=== PATIENT | male | born 1990 | race Caucasian/White ===

== ENCOUNTER 2020-11-20 14:08 | Emergency (ER) | payer SELFPAY ==
--- NOTE | ~2020-11-20 | XR_ITS ---
EXAMINATION: XR lumbar spine 2-3V DATE: 11/20/2020 15:08 INDICATION: Low back and beginning 4 days prior TECHNIQUE: Anteroposterior and lateral views of the lumbar spine, and cone-down lateral view of the l umbosacral junction were obtained. COMPARISON: None. FINDINGS: Alignment is normal. Vertebral body and disc no significant facet osteoarthritis. Sacrum and bilatera l sacroiliac joints are normal. Phlebolith in the left hemipelvis. Heights are normal. IMPRESSION: 1. Negative lumbar spine radiographs. Reviewed, dictated and finalized at location A.
[2020-11-20 14:20] VITALS: BP 139/73; PULSE 75; RESP 18; TEMP 37.4; O2SAT 99
--- NOTE | 2020-11-20 14:36 | ED.BACK ---
HPI - Back Pain/Injury General Chief Complaint: Back Pain/Injury Stated Complaint: Possible injury to Back Time Seen by Provider: 11/20/20 14:36 Source: patient, RN notes reviewed and old records reviewed Mode of arrival: ambulatory Limitations: no limitations History of Present Illness HPI Narrative: 30 year old male who presents to [facility] using wheelchair with complaints of pain to his lower back which was tolerable and Friday. He states that he did go wave boarding and jet skiing over the weekend and last night his back hurt so bad he could barely stand up. Today his back hurt so bad he was not able to go to work today, he took a Vicodin his friend gave to him and he has been taking Naprosyn also. Patient denies any radiation of pain to his lower extremities, denies any tingling or numbness to lower extremities. He reports no difficulty passing his urine or having bowel movement, denies any saddle paraesthesia. MD elicited complaint: back pain Pertinent past history: prior back pain Onset (ago): day(s) (since ) Timing: constant Severity: severe Pain scale (0-10): 8 Similar Symptoms Previously: Yes Quality: aching Location: lumbar spine Radiation: none Exacerbating factors: movement Relieving factors: none Context: other (no known recent injury) Treatments prior to arrival: NSAIDS and other (took Vicodin tablet friend gave him) Work related injury: No Related Data Allergies Allergy/AdvReac Type Severity Reaction Status Date / Time No Known Allergies Allergy Verified 11/20/20 14:29 Review of Systems Review of Systems: Narrative: CONSTITUTIONAL: Denies fever, chills, or sweats. EYES: Denies visual changes, redness, or discharge. ENT: Denies rhinorrhea, congestion, sore throat, or otalgia. CARDIOVASCULAR: Denies chest pain, palpitations, or edema. RESPIRATORY: Denies cough or dyspnea. GASTROINTESTINAL: Denies abdominal pain, nausea, vomiting, or diarrhea. GENITOURINARY: Denies dysuria or hematuria. SKIN: Denies rash or itching. MUSCULOSKELETAL:Positive lumbar back pain, joint pain, or myalgia. NEUROLOGIC: Denies headache, numbness, or weakness. PSYCHIATRIC: Denies anxiety or depression. All systems reviewed & are unremarkable except as noted in HPI and below PMFSH Past Medical History Medical History (Updated 11/23/20 @ 16:44 by Lissa Mathias NP) Lumbar back pain Surgical History Surgical History (Updated 11/23/20 @ 16:44 by Lissa Mathias NP) History of placement of ear tubes Family History Family History (Updated 11/23/20 @ 16:45 by Lissa Mathias NP) Other No significant family history Social History Social History (Updated 11/23/20 @ 16:46 by Lissa Mathisa NP) Tobacco type: e-cigarettes/vaping Additional smoking assessment comments: former tobacco use daily 1pk/day many years Alcohol intake: former Substance use: current Substance use type: marijuana Living arrangements: with family Gender identity (if verbalized by the patient): Male Comments At time of signature, agree with nursing past medical, surgical, social and family history. There is no relevant family history pertinent to the presenting complaint Exam Narrative: Exam Narrative: GENERAL: Well-appearing, well-nourished, and in stated acute distress. HEAD: Normocephalic, atraumatic. EYES: PERRLA and EOMI. ENT: Nares clear, no rhinorrhea or epistaxis. Mucous membranes moist.TM's normal with good light reflex, throat pink with no lesions or exudates, no tonsil swelling NECK: Supple.no lymphadenopathy CHEST: Clear to auscultation. No respiratory distress.SAO2 99% on room air HEART: Regular rate and rhythm. No murmur heard. Normal peripheral pulses. ABDOMEN: Soft, nontender, nondistended, normal active bowel sounds. EXTREMITIES: Normal range of motion. No edema.Lumbar back pain bilaterally with no radiation of pain down legs, no tingling or numbness to lower extremities, No paraspinal tenderness or a
== END 2020-11-20 15:50 | disposition home or self-care (01) ==
PROVIDERS: Emergency Provider Registered Nurse
DX: S39.012A Strain of muscle, fascia and tendon of lower back, initial encounter (principal); X58.XXXA Exposure to other specified factors, initial encounter; Y93.17 Activity, water skiing and wake boarding; F17.200 Nicotine dependence, unspecified, uncomplicated
CPT/HCPCS: 72100; 99203; G0463

== ENCOUNTER 2021-06-26 11:42 | Emergency (ER) | payer OTHER, SELFPAY ==
[2021-06-26 11:57] VITALS: BP 126/86; PULSE 89; RESP 16; TEMP 37.6; O2SAT 98
--- NOTE | 2021-06-26 12:03 | ED.URI ---
HPI - URI/Sore Throat General Chief Complaint: Upper Respiratory Infection Stated Complaint: nausea and cold symptoms Time Seen by Provider: 06/26/21 12:03 Source: patient, RN notes reviewed and old records reviewed History of Present Illness HPI Narrative: 30 year old male who presents to [facility] care with complaints of cough, congestion,headache,fever up to 102F with some nausea and vomiting since yesterday. Patient reports that he has taken Mucinex for his symptoms with no resolution. Patient reports that cough has been worse at night denies any dyspnea or any wheezing with no tachypnea noted. Related Data Allergies Allergy/AdvReac Type Severity Reaction Status Date / Time No Known Allergies Allergy Verified 06/26/21 12:13 Review of Systems Review of Systems: CONSTITUTIONAL: Positive for fever, chills, or sweats. EYES: Denies visual changes, redness, or discharge. ENT: Positive rhinorrhea, congestion, sore throat, no otalgia. CARDIOVASCULAR: Denies chest pain, palpitations, or edema. RESPIRATORY: Positive cough or dyspnea. GASTROINTESTINAL: Denies abdominal pain, nausea, vomiting, or diarrhea. GENITOURINARY: Denies dysuria or hematuria. SKIN: Denies rash or itching. MUSCULOSKELETAL: Denies back pain, joint pain, or myalgia. NEUROLOGIC: Denies headache, numbness, or weakness. PSYCHIATRIC: Denies anxiety or depression. All systems reviewed & are unremarkable except as noted in HPI and below PMFSH Past Medical History Medical History Lumbar back pain Surgical History Surgical History History of placement of ear tubes Family History Family History Other No significant family history Social History Social History (Updated 06/26/21 @ 12:23 by Lissa Mathias NP) Smoking packs per day: 1 Smoking cigarettes per day: 20.0 Smoking status: Current every day smoker Tobacco type: cigarettes and e-cigarettes/vaping Alcohol intake: former Substance use: current Substance use type: marijuana Living arrangements: with family Gender identity (if verbalized by the patient): Male Comments At time of signature, agree with nursing past medical, surgical, social and family history. There is no relevant family history pertinent to the presenting complaint Exam Narrative: GENERAL: Well-appearing, well-nourished, and in no acute distress. HEAD: Normocephalic, atraumatic. EYES: PERRLA and EOMI. ENT: Nares red,positive for rhinorrhea no epistaxis. Mucous membranes moist.Right TM normal with good light reflex, Left ear has ear tube in place no drainage or redness noted. NECK: Supple. no lymphadenopathy CHEST: Clear to auscultation. No respiratory distress.SAO2 98% on room air HEART: Regular rate and rhythm. No murmur heard. Normal peripheral pulses. ABDOMEN: Soft, nontender, nondistended, normal active bowel sounds. EXTREMITIES: Normal range of motion. No edema. SKIN: Warm, dry, no rash. NEURO: No focal deficits. Alert and oriented x3. Course Course Level of Care: Express Care Visit Vital Signs Vital signs: Vital Signs Temperature 37.6 C 06/26/21 11:57 Pulse Rate 89 06/26/21 11:57 Respiratory Rate 16 06/26/21 11:57 Blood Pressure 126/86 06/26/21 11:57 Pulse Oximetry 98 06/26/21 11:57 Temperature 37.6 C 06/26/21 11:57 Pulse Rate 89 06/26/21 11:57 Respiratory Rate 16 06/26/21 11:57 Blood Pressure 126/86 06/26/21 11:57 Pulse Oximetry 98 06/26/21 11:57 MDM - URI/Sore Throat Differential Diagnosis Differential diagnosis: Likely upper respiratory infection, otitis media, sinusitis, viral infection, pharyngitis and other (cough with congestion) Lab Data Attestation: I reviewed the patient's lab results. Lab results narrative: strep screen negative Labs: Strep Screen Presumptive Negat
== END 2021-06-26 12:30 | disposition home or self-care (01) ==
PROVIDERS: Emergency Provider Registered Nurse
DX: J06.9 Acute upper respiratory infection, unspecified (principal); F17.210 Nicotine dependence, cigarettes, uncomplicated; F17.200 Nicotine dependence, unspecified, uncomplicated; F12.90 Cannabis use, unspecified, uncomplicated
CPT/HCPCS: 87081; 87880; 99213; G0463

== ENCOUNTER 2024-08-16 08:02 | Emergency (ER) | payer OTHER, SELFPAY ==
--- NOTE | ~2024-08-16 | XR_ITS ---
Left ankle Technique: AP, oblique, and lateral views were obtained. Clinical History: Pain Findings: No acute fracture or dislocation is seen. Osseous alignment is anatomic. Ankle mortise and other visualized joint spaces are preserved. Soft tissues are otherwise unremarkable. Impression: Unremarkable left ankle. Reviewed, dictated and finalized at location . Impression: Unremarkable left ankle.
[2024-08-16 08:10] VITALS: BP 137/81; PULSE 79; RESP 20; TEMP 36.6; O2SAT 97
--- NOTE | 2024-08-16 08:11 | ED.GENADULT ---
HPI - General Adult General Chief complaint: Extremity Injury, Lower Stated complaint: Left Ankle Injury Time Seen by Provider: 08/16/24 08:13 Source: patient, RN notes reviewed and old records reviewed Mode of arrival: ambulatory Limitations: no limitations History of Present Illness HPI narrative: 33year old male with complaints of left ankle pain for the past 3--4 months with no known injury. Patient reports that he has pain to the lateral and posterior ankle region and pain with extension of his left foot and increased pain with ambulation and going up stairs. Patient has taken some Ibuprofen but not routinely. MD complaint: left ankle pain Onset (ago): month(s) (3-4 months) Location: left and lower extremity (posterior and lateral ankle) Severity scale (1-10): 6 Exacerbating factors: other (ambulation and stairs) Treatments prior to arrival: NSAID (no routinely) Related Data Allergies Allergy/AdvReac Type Severity Reaction Status Date / Time No Known Allergies Allergy Verified 08/16/24 08:12 Review of Systems Review of Systems: CONSTITUTIONAL: Denies fever, chills, or sweats. EYES: Denies visual changes, redness, or discharge. ENT: Denies rhinorrhea, congestion, sore throat, or otalgia. CARDIOVASCULAR: Denies chest pain, palpitations, or edema. RESPIRATORY: Denies cough or dyspnea. GASTROINTESTINAL: Denies abdominal pain, nausea, vomiting, or diarrhea. GENITOURINARY: Denies dysuria or hematuria. SKIN: Denies rash or itching. MUSCULOSKELETAL: Denies back pain,positive for left lateral posterior ankle pain with no injury, or myalgia. NEUROLOGIC: Denies headache, numbness, or weakness. PSYCHIATRIC: Denies anxiety or depression. All systems reviewed & are unremarkable except as noted in HPI and below PMFSH Past Medical History Medical History (Updated 08/17/24 @ 11:04 by Lissa Mathias NP) Frequent sinus infections Lumbar back pain Surgical History Surgical History History of placement of ear tubes Family History Family History Other No significant family history Social History Social History Smoking packs per day: 1 Smoking cigarettes per day: 20.0 Smoking status: Current every day smoker Tobacco type: cigarettes and e-cigarettes/vaping Alcohol intake: former Substance use: current Substance use type: marijuana Living arrangements: with family Gender identity (if verbalized by the patient): Male Comments At time of signature, agree with nursing past medical, surgical, social and family history. There is no relevant family history pertinent to the presenting complaint Exam Narrative: GENERAL: Well-appearing, well-nourished, and in no acute distress. HEAD: Normocephalic, atraumatic. EYES: PERRLA and EOMI. ENT: Nares clear, no rhinorrhea or epistaxis. Mucous membranes moist.TM's normal throat pink with no swelling NECK: Supple.no lymphadenopathy CHEST: Clear to auscultation. No respiratory distress.SAO2 97% on room air HEART: Regular rate and rhythm. No murmur heard. Normal peripheral pulses. ABDOMEN: Soft, nontender, nondistended, normal active bowel sounds. EXTREMITIES: Normal range of motion. No edema. Pain to the lateral and posterior left ankle with increase pain to the area when he extends his lower foot and with ambulation and going up stairs, no pain noted on sides of posterior ankle at Achilles insertion sites. strong left pedal pulses with no tingling or numbness to foot SKIN: Warm, dry, no rash. NEURO: No focal deficits. Alert and oriented x3. Course Course Emergency Course: Patient is aware of diagnosis, understands and agrees to treatment plan.? Anticipatory guidance given.? Patient agrees to follow-up as directed and is aware of reasons to seek care at the emergency department. Portions of this record may have been created with voice recognition software Level of Care: Express Care Visit Vital Signs Vital signs: Vital Signs Temperature 36.6 C 08/16/24 08:10 Pulse Rate 79 08/16/24 08:10 Respiratory Rate 20 08/16/24 08:10 Blood Pressure 137/81 08/16/24 08:10 Pulse Oximetry 97 08/16/24 08:10 Oxygen Delivery Room Air 08/16/24 08:10 Temperature 36.6 C 08/16/24 08:10 Pulse Rate 79 08/16/24 08:10 Respiratory Rate 20 08/16/24 08:10 Blood Pressure 137/81 08/16/24 08:10 Pulse Oximetry 97 08/16/24 08:10 Oxygen Delivery Room Air 08/16/24 08:10 Reviewed Medical Decision Making MDM Narrative Medical decision making narrative: Exam findings and imaging show no acute concerns or changes; patient is non-toxic appearing and is in no distress.? Patient is appropriate for outpatient treatment and follow-up Differential Diagnosis Differential Diagnosis: left lateral and posterior ankle pain, strain of left ankle, tendonitis Medical Records Medical records reviewed: Yes I reviewed the external patient's medical records. Vital Signs Vital Signs: Vital Signs Temperature 36.6 C 08/16/24 08:10 Pulse Rate 79 08/16/24 08:10 Respiratory Rate 20 08/16/24 08:10 Blood Pressure 137/81 08/16/24 08:10 Pulse Oximetry 97 08/16/24 08:10 Oxygen Delivery Room Air 08/16/24 08:10 Temperature 36.6 C 08/16/24 08:10 Pulse Rate 79 08/16/24 08:10 Respiratory Rate 20 08/16/24 08:10 Blood Pressure 137/81 08/16/24 08:10 Pulse Oximetry 97 08/16/24 08:10 Oxygen Delivery Room Air 08/16/24 08:10 reviewed Imaging Data Attestation: I personally reviewed and interpreted this imaging study as follows: My impression: normal left ankle Radiologist's impression: [place] [id number] XRay Report Signed Patient: Juan M Marques : 1990 MR#: [id number] Age: 33 Acct:[id number] Loc: [facility] ADM Date: 08/16/24Attending Dr: Ordering Physician: Lissa Mathias APRN Date of Service: 08/16/24 Procedure(s): XR ankle LT min 3V Accession Number(s): [id number] cc: GROUNDSKEEPING MAINTENANCE PHYSICIAN; Lissa Mathias APRN~ Left ankle Technique: AP, oblique, and lateral views were obtained. Clinical History: Pain Findings: No acute fracture or dislocation is seen. Osseous alignment is anatomic. Ankle mortise and other visualized joint spaces are preserved. Soft tissues are otherwise unremarkable. Impression: Unremarkable left ankle. Reviewed, dictated and finalized at location M. Please be advised this is a medical document. It is intended for [id number]-azlo communication. It is written in medical language and may contain unfamiliar abbreviations or verbiage. Medical documents are intended to carry relevant information, facts as evident, and the clinical opinion of the practitioner at the time of the encounter. This report may have been done utilizing a voice recognition system. Attempts have been made to correct errors. However, there may be uncorrected grammatical, spelling, and recognition errors present. The file time of this note does not necessarily represent the time of service. Dictated By: Yohannes Alvarez MD 08/16/24 0840 Signed By: <Electronically signed by Yohannes Alvarez MD in [place]> Critical Care Time Critical Care Time Critical Care Time: No Discharge Plan Discharge Clinical Impression: Ankle pain, left Qualifiers: Chronicity: unspecified Qualified Code(s): M25.572 - Pain in left ankle and joints of left foot Patient Disposition: Home Condition: Stable Instructions: Arthralgia (ED), Ankle Strain (ED) Additional Instructions: Elastic wrap or recommend lace-up splint to left ankle Tylenol for lesser pain Ibuprofen regularly for the next 2-3 days for the inflammation take 400-600 mg 3 times daily for the next 2 days with food Take prednisone as prescribed 20 mg twice daily for 5 days Follow-up with orthopedic surgeon if continued problems Follow-up with PCP if further problems or concerns Ice to the area 20-30 minutes 4-6 times a day Elevate above heart If your symptoms persist, change or worsen significantly before you can contact your personal physician then please, without delay, go to the emergency department for further evaluation. Follow-up with PCP in 7-10 days or sooner if needed Follow up with PCP soon in regards to your blood pressure which is elevated above threshold for referral. Blood pressure above 120/80 may indicate pre-hypertension. 137/81 Patient Language: Bengali Prescriptions: New prednisone 20 mg tablet 20 mg PO BID Qty: 10 0RF Rx Instructions: Take with food take a.m. and early p.m. no later than 6 Follow-up/Referrals: PHYSICIAN,GROUNDSKEEPING MAINTENANCE [Primary Care Provider] - Time of Disposition: 08:53 Quality [place] Coma Scale Eyes: Open Verbal: Oriented and Alert Motor: Follows Commands [place] Coma Total Score: 15
--- OUTSIDE RECORDS SUMMARY | 2024-08-16 08:27 | XMS_ITS | Clinical Summary ---
Author Organization [facility] Address [address] [place] [address] Phone Care Team Providers Care Earth Science Technician Name Role Phone Provider, None Primary Care Provider Unavailabl e Allergies No known active allergies Medications nicotine (NICOTINE STEP 1) 21 MG/24HR PATCH 24 HR 1 Patch by Transdermal route every 24 hours. 30 Patch 0 Active Additional Information Patient not taking.Reported on 04/22/2020 nicotine (NICOTINE STEP 2) 14 MG/24HR PATCH 24 HR 1 Patch by Transdermal route every 24 hours. 30 Patch 0 Active Additional Information Patient not taking.Reported on 04/22/2020 nicotine (NICOTINE STEP 3) 7 MG/24HR PATCH 24 HR 1 Patch by Transdermal route every 24 hours. Begin after completing 14 mg patch 30 Patch 3 0 Active Additional Information Patient not taking.Reported on 04/22/2020 naproxen (NAPROSYN) 500 MG Tablet Take 1 Tab by mouth 2 times daily (with meals). 60 Tab 0 Active Additional Information Patient not taking.Reported on 04/22/2020 Active Problems No known active problems Immunizations Immunization Administration Dates Next Due Pneumococcal Vaccine Adult - 23 Valent 0 TDAP Vaccine 11/19/2019 Family History Medical History Relation Name Comments No Known Problems Father No Known Problems Mother Relation Name Status Comments Brother Alive Father Alive Mother Alive Sister Alive Social History Tobacco Use Types Packs/Day Years Used Date Smoking Tobacco: Every Day Cigarettes 0.8 18 Smokeless Tobacco: Never Tobacco Cessation:Ready to Q uit: Yes; Counseling Given: Yes Alcohol Use Standard Drinks/Week Comments No 0 (1 standard drink = 0.6 oz pur e alcohol) PHQ-2 Answer Date Recorded Total Score - Questions 1-9 0 10/27 Sexually Active Control Partners Comments Yes Sex and Gender Information Value Date Recorded Sex Assigned at Not on file Legal Sex Male 8:55 PM CDT Gender Identity Not on file Sexual Orientation Not on file Last Filed Vital Signs Vital Sign Reading Time Taken Comments Blood Pressure 118/78 04/22/2020 10:59 AM HOP SEPARATOR Pulse 83 04/22/2020 10:59 AM HOP SEPARATOR Temperature 37 C (98.6 F) 04/22/2020 10:59 AM HOP SEPARATOR Respiratory Rate 16 11/19/2019 4:28 PM CDT Oxygen Saturation 98% 04/22/2020 10:59 AM HOP SEPARATOR Inhaled Oxygen Concentration - - Weight 88.5 kg (195 lb) 04/22/2020 10:59 AM HOP SEPARATOR Height 182.9 cm (6') 12/08/2019 6:08 PM CDT Body Mass Index 26.45 12/08/2019 6:08 PM CDT Plan of Treatment Health Maintenance Due Date Last Done Comments Influenza Immunization (#1) 2023 SARS-COV-2 Immunization (2 season) 2023 04/13/2021 Respiratory Syncytial Virus (RSV) Immunization (Adult) (1 - 1-dose 75+ series) 11/03/2063 Hepatitis B Immunization Completed 000, 06/28/1999, 11/28/1998 DTaP/Tdap/Td Immunization Discontinued 2019, 11/03/2002, 08/21/1993, Additional history exists Pneumococcal Immunization Combined Aged Out 11/19/2019 No longer eligible based on patient's age to complete this topic Hepatitis C Virus (HCV) Screening Completed 12/06/2019 Meningococcal Immunization (ACWY) Aged Out No longer eligible based on patient's age to complete this topic Rotavirus Immunization Aged Out No lo nger eligible based on patient's age to complete this topic Procedures Procedure Name Priority Date/Time Associated Diagnosis Comments HEPATITIS C ANTIBODY Routine 12/06/2019 9:53 AM CDT Preventative health care (Adult) from Last 3 Months or Most Recently Relevant to Health Maintenance Results * HEPATITIS C ANTIBODY (12/06/2019 9:53 AM CDT) hepatitis C antibody 0.06 <1 S/CO 12/06/2019 9:32 PM CDT [facility] Comment: Signal/Cutoff ratio < 0.79 is Nondetected Signal/Cutoff ratio 0.80-0.99 is Grayzone Signal/Cutoff ratio > 0.99 is Detected Supplemental assays are recommended if signal/cutoff ratio is >/=1.00. Signal/cutoff ratio result >/= 5.00 is 97% predictive of positivity for recombinant immunoblot assay (RIBA) and will be reported to the [place] Department of Public [facility] as required. Blood Venipuncture / Unknown 12/06/2019 9:53 AM CDT 12/06/2019 9:53 AM CDT us [place] PAC CHEMISTRY ORDERABLES Fin al Result [facility] [address] [place] [address], [place] from Last 3 Months or Most Recently Relevant to Health Maintenance Care Teams Earth Science Technician Relationship Specialty Start Date End Date Provider, None [place] PCP - General 02/07/22
--- OUTSIDE RECORDS SUMMARY | 2024-08-16 08:27 | XMS_ITS | Clinical Summary ---
Author Organization [facility] Address [address] [place] [address] Care Team Providers Care Frame Repairer Name Role Phone Unavailable Primary Care Provider Unavailabl e Source Comments [facility] [employer],non-owned Affiliates and Associated Physician Practices is amultiple site organization consisting of ambulatory clinics and hospital sitesin [place], [place], [place] and [place]. This disclosure is being madepursuant to the Care Everywhere program and may not contain all information available regarding this patient. Last updated 18.[facility] Allergies No known active allergies Medications * Be aware that medications may not be up to date on this document. Alwaysverify current medications with the patient. methylPREDNISol one (MEDROL DOSEPAK) 4 MG tablet Take by mouth as directed 1 Each 9 Active albuterol HFA (PROVENTIL;VENT FLORINA;PROAIR) 108 (90 Base) MCG/ACT inhaler Inhale 2 puffs by mouth every 4 hours as needed for Shortness of Breath, Wheezing or Cough 1 Inhaler 9 Active Social History Tobacco Use Types Packs/Day Years Used Date Smoking Tobacco: Every Day Smokeless Tobacco: Never Sex and Gender Information Value Date Recorded Sex Assigned at Not on file Legal Sex Male 8:39 AM MENTAL TELEPATHIST Gender Identity Not on file Sexual Orientation Not on file Last Filed Vital Signs Vital Sign Reading Time Taken Comments Blood Pressure 124/72 04/13/2019 9:27 AM MENTAL TELEPATHIST Pulse 83 04/13/2019 9:27 AM MENTAL TELEPATHIST Temperature 36.8 C (98.3 F) 04/13/2019 9:27 AM MENTAL TELEPATHIST Respiratory Rate 16 04/13/2019 9:27 AM MENTAL TELEPATHIST Oxygen Saturation 98% 04/13/2019 9:27 AM MENTAL TELEPATHIST Inhaled Oxygen Concentration - - Weight 83.9 kg (185 lb) 04/13/2019 9:27 AM MENTAL TELEPATHIST Height 182.9 cm (6') 04/13/2019 9:27 AM MENTAL TELEPATHIST Body Mass Index 25.09 04/13/2019 9:27 AM MENTAL TELEPATHIST Plan of Treatment Health Maintenance Due Date Last Done Comments HIV SCREENING 11/03/2003 HEPATITIS C SCREENING 10/29/2006 DTAP/TDAP/TD VACCINES (1 - Tdap) 11/03/2007 HEPATITIS B VACCINE (1 of 3 - 19+ 3-dose series) 11/03/2007 COVID-19 VACCINE (1 - 2023-2 5 season) 2023 DEPRESSION SCREENING 04/28/2024 INFLUENZA VACCINE (Season Ended) 2024 ZOSTER VACCINE (1 of 2) 2038 HIB VACCINE Aged Out No longer eligi ble based on patient's age to complete this topic HPV VACCINE Aged Out No longer eligi ble based on patient's age to complete this topic MENINGOCOCCAL (Group B) VACC INE SHARED DECISION-MAKING Aged Out No longer eligibl e based on patient's age to complete this topic MENINGOCOCCAL GROUPS A/C/Y/W VACCINE Aged Out No longer eligible b ased on patient's age to complete this topic PNEUMOCOCCAL VACCINE Aged Out No long er eligible based on patient's age to complete this topic [place] [address] [place] [address] [facility]
== END 2024-08-16 08:59 | disposition home or self-care (01) ==
PROVIDERS: Emergency Provider Registered Nurse
DX: M25.572 Pain in left ankle and joints of left foot (principal); F17.210 Nicotine dependence, cigarettes, uncomplicated; F17.290 Nicotine dependence, other tobacco product, uncomplicated; F12.90 Cannabis use, unspecified, uncomplicated
CPT/HCPCS: 73610; 99213; G0463